=== PATIENT | female | born 1960 | race Caucasian/White ===

== ENCOUNTER 2021-08-26 10:50 | Emergency (ER) | payer SELFPAY ==
[~2021-08-26] VITALS: Ht 157.5 cm; Wt 66.0 kg
[2021-08-26] MEDS ORDERED: FLEXERIL5 M1 PO (12:33)
[2021-08-26] MEDS ORDERED: LATUDA20 MG PO (12:33)
[2021-08-26] MEDS ORDERED: LEXAPRO10 MG PO (12:34)
[2021-08-26] MEDS ORDERED: ATENOLOL50 MG PO (12:34)
[2021-08-26] MEDS ORDERED: ATORVASTATIN CA40 MG PO (12:35)
[2021-08-26] MEDS ORDERED: PROTONIX40 MG PO (12:35)
[2021-08-26] MEDS ORDERED: XANAX1 MG PO (12:36)
[2021-08-26] MEDS ORDERED: ASPIRIN 81 LOW81 MG PO (12:37)
[2021-08-26] MEDS ORDERED: NORVASC5 M1 PO (12:37)
[2021-08-26] MEDS ORDERED: ADDERALL30 MG PO (12:38)
[2021-08-26 13:37] VITALS: BP 120/58
== END 2021-08-26 13:43 | disposition home or self-care (01) | DRG 90 ==
LOC: ED 10:50
DX: S06.0X0A Concussion without loss of consciousness, initial encounter (principal); M25.532 Pain in left wrist; M25.551 Pain in right hip; I10 Essential (primary) hypertension; E78.5 Hyperlipidemia, unspecified; K21.9 Gastro-esophageal reflux disease without esophagitis; F31.9 Bipolar disorder, unspecified; F41.9 Anxiety disorder, unspecified; W18.09XA Striking against other object with subsequent fall, initial encounter; Y92.512 Supermarket, store or market as the place of occurrence of the external cause

== ENCOUNTER 2021-10-24 13:23 | Emergency (ER) | payer MEDICARE ==
[~2021-10-24] VITALS: Ht 157.5 cm; Wt 70.0 kg
[2021-10-24] VITALS (11 sets, daily range): BP systolic 97–114; BP diastolic 51–68
[~2021-10-24 13:23] MED LIST: ADDERALL30 MG PO; ASPIRIN 81 LOW81 MG PO; ATENOLOL50 MG PO; FLEXERIL5 M1 PO; LATUDA20 MG PO; LEXAPRO20 MG PO; NORVASC5 M1 PO; PRAVASTATIN40 MG PO; PROTONIX40 MG PO; XANAX1 MG PO
[2021-10-24] MEDS ORDERED: LASIX 40 MG TAB40 MG PO (13:44)
[2021-10-24] MEDS ORDERED: VITAMIN B-12500 MC2 PO (13:45)
[2021-10-24] MEDS ORDERED: TENORMIN25 M1 PO (13:47)
[2021-10-24] MEDS ORDERED: [UNRECOGNIZED DRUG - OTHER] PO (13:50)
[2021-10-24] MEDS ORDERED: ESTRACE2 M1 PO (13:50)
[2021-10-24] MEDS ORDERED: MAGNESIUM250 M1 PO (13:51)
[2021-10-24] MEDS ORDERED: COQ-10100 MG PO (13:53)
[2021-10-24] MEDS ORDERED: FLUTICASON50 MCG/ACT (13:54)
[2021-10-24] MEDS ORDERED: FLONASE AL50 MCG/ACT IN (14:08)
[2021-10-24 14:23] LABS: HEMATOCRIT 32.8 % (37.0-47.0); HEMOGLOBIN 11.1 g/dl (12.0-16.0); IMMATURE GRANULOCYTES 0.3 % (0.0-5.0); MEAN CELL VOLUME 95.9 fL CALC (80.0-100.0); MEAN CORPUSCULAR HGB 32.5 pG CALC (26.0-32.0); MEAN CORPUSCULAR HGB CONC 33.8 g/dL CAL (32.0-36.0); NEUT# 5.05 thou/uL (2.00-7.15); RED BLOOD COUNT 3.42 mill/uL (4.20-5.60); RED CELL DISTRI WIDTH 12.2 % (11.5-15.5)
[2021-10-24 14:34] LABS: ALBUMIN 4.3 g/dL (3.2-5.0); ALKALINE PHOSPHATASE 96 u/l (38-126); ANION GAP 13 (6-22 (CALC)); BILIRUBIN, TOTAL 0.3 mg/dL (0.0-1.4); BUN 11 mg/dL (8-23); BUN/CREATININE RATIO 15 (12-20 (CALC)); CARBON DIOXIDE 24 mmol/l (22-30); CHLORIDE 103 mmol/l (95-108); CREATININE 0.8 mg/dL (0.5-1.0); GFR > 60 ML/MIN (>=60 (CALC)); GFR FOR AFR.AMER. > 60 ML/MIN (>=60 (CALC)); POTASSIUM 4.2 mmol/l (3.5-5.1); SGOT/AST 22 u/l (9-36); SODIUM 137 mmol/l (137-146); TOTAL PROTEIN 7.2 g/dL (6.3-8.2)
[2021-10-24 16:41] LABS: URINE BILIRUBIN - DIPSTICK NEGATIVE (NEGATIVE); URINE BLOOD DIPSTICK NEGATIVE (NEGATIVE); URINE COLOR YELLOW; URINE GLUCOSE - DIPSTICK NEGATIVE (NEGATIVE); URINE KETONE NEGATIVE (NEGATIVE); URINE LEUK ESTERASE NEGATIVE (NEGATIVE); URINE PROTEIN - DIPSTICK NEGATIVE (NEG-TRACE); URINE SPECIFIC GRAVITY <=1.005; URINE UROBILINOGEN - DIPSTICK 0.2 E.U./dL (0.2)
[2021-10-24 16:43] LABS: URINE NITRITE - DIPSTICK NEGATIVE (Negative)
== END 2021-10-24 18:00 | disposition left against medical advice (07) ==
LOC: ED 13:23
PROVIDERS: Family Medicine
DX: R07.89 Other chest pain (principal); R55 Syncope and collapse; R47.81 Slurred speech; I10 Essential (primary) hypertension; E78.5 Hyperlipidemia, unspecified; K21.9 Gastro-esophageal reflux disease without esophagitis; F31.9 Bipolar disorder, unspecified; F41.9 Anxiety disorder, unspecified; Z95.5 Presence of coronary angioplasty implant and graft; Z91.19 Patient's noncompliance with other medical treatment and regimen
CPT/HCPCS: Q9967

== ENCOUNTER 2021-11-08 08:49 | Emergency (ER) | payer MEDICARE ==
[~2021-11-08] VITALS: Ht 157.5 cm; Wt 66.8 kg
[~2021-11-08 08:49] MED LIST changes: +COQ-10100 MG PO; +ESTRACE2 M1 PO; +FLONASE AL50 MCG/ACT IN; +FLUTICASON50 MCG/ACT; +LASIX 40 MG TAB40 MG PO; +MAGNESIUM250 M1 PO; +TENORMIN25 M1 PO; +VITAMIN B-12500 MC2 PO; +[UNRECOGNIZED DRUG - OTHER] PO
[2021-11-08] MEDS ORDERED: MECLIZINE25 MG PO ×2 (09:39→11:45)
[2021-11-08 09:59] LABS: HEMOGLOBIN 11.7 g/dl (12.0-16.0); IMMATURE GRANULOCYTES 0.1 % (0.0-5.0); MEAN CORPUSCULAR HGB 33.1 pG CALC (26.0-32.0); MEAN CORPUSCULAR HGB CONC 34.4 g/dL CAL (32.0-36.0); NEUT# 4.48 thou/uL (2.00-7.15); RED BLOOD COUNT 3.54 mill/uL (4.20-5.60); RED CELL DISTRI WIDTH 12.5 % (11.5-15.5)
[2021-11-08 10:19] LABS: ALBUMIN 3.9 g/dL (3.2-5.0); ALKALINE PHOSPHATASE 86 u/l (38-126); ANION GAP 11 (6-22 (CALC)); BILIRUBIN, TOTAL 0.2 mg/dL (0.0-1.4); BUN 11 mg/dL (8-23); BUN/CREATININE RATIO 15 (12-20 (CALC)); CARBON DIOXIDE 26 mmol/l (22-30); CHLORIDE 104 mmol/l (95-108); CREATININE 0.8 mg/dL (0.5-1.0); GFR > 60 ML/MIN (>=60 (CALC)); GFR FOR AFR.AMER. > 60 ML/MIN (>=60 (CALC)); POTASSIUM 4.4 mmol/l (3.5-5.1); SGOT/AST 23 u/l (9-36); SODIUM 137 mmol/l (137-146); TOTAL PROTEIN 6.4 g/dL (6.3-8.2)
[2021-11-08] MEDS ORDERED: ONDANSETRON4 MG PO (11:45)
[2021-11-08 13:07] VITALS: BP 102/52
== END 2021-11-08 13:08 | disposition home or self-care (01) ==
LOC: ED 08:49
PROVIDERS: Family Medicine
DX: R42 Dizziness and giddiness (principal); I10 Essential (primary) hypertension; E78.5 Hyperlipidemia, unspecified; K21.9 Gastro-esophageal reflux disease without esophagitis; F31.9 Bipolar disorder, unspecified; F41.9 Anxiety disorder, unspecified; M79.7 Fibromyalgia